=== PATIENT | male | born 1965 | race Caucasian/White ===

== ENCOUNTER 2018-08-25 17:53 | Emergency (ER) | payer OTHER ==
[~2018-08-25] VITALS: Ht 175.3 cm; Wt 99.8 kg
[2018-08-25 18:05] VITALS: Ht 175.3 cm; Wt 99.8 kg
[2018-08-25 18:38] VITALS: BP 122/88
== END 2018-08-25 18:38 | disposition left against medical advice (07) ==
LOC: ED 17:53
DX: Z53.21 Procedure and treatment not carried out due to patient leaving prior to being seen by health care provider (principal)